=== PATIENT | female | born 1950 | race Caucasian/White ===

== ENCOUNTER 2018-07-01 01:11 | Emergency (ER) | payer MEDICARE ==
[~2018-07-01] VITALS: Ht 160 cm; Wt 66.2 kg
[~2018-07-01 01:11] MED LIST: MECL12.5 PO; ZOF4T PO
[2018-07-01 02:47] VITALS: BP 153/81
== END 2018-07-01 02:50 | disposition home or self-care (01) ==
LOC: ER 01:11
DX: F41.0 Panic disorder [episodic paroxysmal anxiety] (principal); I10 Essential (primary) hypertension; F41.9 Anxiety disorder, unspecified; Z98.890 Other specified postprocedural states; Z79.899 Other long term (current) drug therapy
CPT/HCPCS: 99284